=== PATIENT | male | born 1990 | race Caucasian/White ===

== ENCOUNTER 2018-11-06 19:05 | Emergency (ER) | payer MEDICAID ==
[~2018-11-06] VITALS: Ht 180.3 cm; Wt 74.7 kg
[2018-11-06 19:07] VITALS: Ht 180.3 cm; Wt 74.7 kg
--- NOTE | 2018-11-06 20:20 | ERD ---
ER Documentation Chief Complaint Chief Complaint planning to OD x 1month, confided to a friend & recommended to seek tx HPI Is a 28-year-old man with a history of depression but never treated medically has had increasing thoughts of suicide and wanting to kill himself, he states symptoms have been present for about 2 months but getting worse over the last couple of weeks. He denies fevers or chills, no chest pain or shortness of breath, no vomiting or diarrhea, no blood per rectum or melena. Patient denies weight loss. He is having thoughts of overdosing. ROS All systems reviewed and are negative except as per history of present illness. Allergies Allergies: Coded Allergies: No Known Allergy (Unverified , 11/06/18) PMhx/Soc Medical and Surgical Hx: pt denies Medical Hx, pt denies Surgical Hx Hx Alcohol Use: No Hx Substance Use: No Hx Tobacco Use: No Smoking Status: Never smoker FmHx Family History: No diabetes Physical Exam Vitals Vital Signs Date Temp Pulse Resp B/P (MAP) Pulse Ox O2 O2 Flow FiO2 Time Delivery Rate 11/06/18 97.9 89 20 130/81 98 Room Air 20:00 (97) 11/06/18 97.9 100 20 134/74 98 19:07 (94) Physical Exam GENERAL: Well-developed, well-nourished, well-hydrated, appears depressed and anxious, afebrile HEENT: Moist mucous membranes, pink conjunctiva, no cervical spine tenderness or step-off deformities, no goiter, no jaundice or icterus, extraocular movements intact without pain. No submandibular induration, and no pharyngeal erythema NEURO: Alert and oriented 3, cranial nerves II through XII intact bilaterally, pupils equal round reactive to light, no focal deficits or facial asymmetry, sensation intact distally Strength 5/5 in upper and lower extremities bilaterally CARDIAC: Regular rate and rhythm, no murmurs rubs or gallops LUNGS: Clear bilaterally no wheezing crackles or stridor SKIN: Warm and dry to touch, abrasion to the right wrist with healing granulation tissue present, no active bleeding, no hematomas EXTREMITIES: No clubbing cyanosis or edema, calves are bilaterally symmetrical, no Homans sign, no popliteal cord sign. Distal pulses equal and bilateral PSYCH: Depressed and anxious affect Result Diagram: 11/06/18202811/06/182028 Results 24 hrs Laboratory Tests Test 11/06/18 20:29 11/06/18 20:35 White Blood Count 6.6 10^3/ul Red Blood Count 4.95 10^6/ul Hemoglobin 14.9 g/dl Hematocrit 42.8 % Mean Corpuscular Volume 86.5 fl Mean Corpuscular Hemoglobin 30.1 pg Mean Corpuscular Hemoglobin Concent 34.8 g/dl Red Cell Distribution Width 12.6 % Platelet Count 264 10^3/UL Mean Platelet Volume 9.7 fl Immature Granulocytes % 0.200 % Neutrophils % 60.7 % Lymphocytes % 28.9 % Monocytes % 7.3 % Eosinophils % 2.3 % Basophils % 0.6 % Nucleated Red Blood Cells % 0.0 /100WBC Immature Granulocytes # 0.010 10^3/ul Neutrophils # 4.0 10^3/ul Lymphocytes # 1.9 10^3/ul Monocytes # 0.5 10^3/ul Eosinophils # 0.2 10^3/ul Basophils # 0.0 10^3/ul Nucleated Red Blood Cells # 0.0 10^3/ul Sodium Level 140 mmol/L Potassium Level 4.3 mmol/L Chloride Level 104 mmol/L Carbon Dioxide Level 27 mmol/L Anion Gap 9 Blood Urea Nitrogen 14 mg/dl Creatinine 0.80 mg/dl Est Glomerular Filtrat Rate mL/min > 60 mL/min Glucose Level 67 mg/dl Calcium Level 9.1 mg/dl Total Bilirubin 0.3 mg/dl Direct Bilirubin 0.00 mg/dl Indirect Bilirubin 0.3 mg/dl Aspartate Amino Transf (AST/SGOT) 18 IU/L Alanine Aminotransferase (ALT/SGPT) 14 IU/L Alkaline Phosphatase 101 IU/L Total Protein 7.5 g/dl Albumin 4.3 g/dl Globulin 3.20 g/dl Albumin/Globulin Ratio 1.34 Salicylates Level < 1.0 mg/dl Acetaminophen Level < 10.0 ug/ml Ethyl Alcohol Level < 10.0 mg/dl Urine Color YELLOW Urine Clarity CLEAR Urine pH 6.0 Urine Specific Gem 1.023 Urine Ketones NEGATIVE mg/dL Urine Nitrite NEGATIVE mg/dL Urine Bilirubin NEGATIVE mg/dL Urine Urobilinogen NEGATIVE mg/dL Urine Leukocyte Esterase NEGATIVE Yandel/ul Urine Hemoglobin NEGATIVE mg/dL Urine Glucose NEGATIVE mg/dL Urine Total Protein NEGATIVE mg/dl Urine Opiates Screen Negative Urine Barbiturates Negative Urine Amphetamines Screen POSITIVE Urine Benzodiazepines Screen Negative Urine Cocaine Screen Negative Urine Cannabinoids Positive Current Medications Medications Dose Sig/Ash Start Time Status Last (Trade) Ordered Route PRN Stop Time Admin Dose Reason Admin Lorazepam 0.5 mg ONCE ONCE 11/06/18 DC 11/06/18 (Ativan) PO 20:30 20:31 11/06/18 20:31 Procedures/MDM I administered lorazepam 0.5 mg p.o. x1 for his symptoms CBC and electrolytes were within normal limits, liver function tests were normal, aspirin, Tylenol, ethanol levels negative, drug screen positive for amphetamines and cannabinoids. Urine analysis negative for infection. Patient's behavioral symptoms have stabilized while in the department. Patient is medically cleared and appropriate for psychiatric evaluation and work up. No e/o neurologic, toxic, infectious, or metabolic cause. Tele-psychiatry consultation has been ordered after evaluating the patient he recommended admission and transferred to psychiatric facility. He also recommended Celexa 20 mg every morning Departure Diagnosis: Primary Impression: Methamphetamine abuse Additional Impression: Depression Depression Type: major depressive disorder Major depression recurrence: single episode Active/Remission status: currently active Major depression episode severity: moderate Qualified Codes: F32.1 - Major depressive disorder, single episode, moderate Condition: Fair MILE FLORES MD Nov 06, 2018 20:20
[2018-11-06] MEDS ORDERED: LORAZEPAM 0.5 MG TAB PO ONE (20:30)
--- NOTE | 2018-11-06 23:17 | PSY ---
Date/Time of Note Date/Time of Note DATE: 11/06/18 TIME: 23:10 Psychiatric Subjective Eval Consent Pt consented to telemedicine: Yes Subjective Evaluation Patient location: emergency Chief Complaint: planning to OD x 1month, confided to a friend & recommended to seek tx Medical history Problems Medical Problems: (1) Depression Status: Acute (2) Methamphetamine abuse Status: Acute Allergies: Coded Allergies: No Known Allergy (Unverified , 11/06/18) Psychiatric Objective Eval Mental Status Examination: Laboratory Results Laboratory Tests Test 11/06/18 20:29 11/06/18 20:35 White Blood Count 6.6 10^3/ul Red Blood Count 4.95 10^6/ul Hemoglobin 14.9 g/dl Hematocrit 42.8 % Mean Corpuscular Volume 86.5 fl Mean Corpuscular Hemoglobin 30.1 pg Mean Corpuscular Hemoglobin Concent 34.8 g/dl Red Cell Distribution Width 12.6 % Platelet Count 264 10^3/UL Mean Platelet Volume 9.7 fl Immature Granulocytes % 0.200 % Neutrophils % 60.7 % Lymphocytes % 28.9 % Monocytes % 7.3 % Eosinophils % 2.3 % Basophils % 0.6 % Nucleated Red Blood Cells % 0.0 /100WBC Immature Granulocytes # 0.010 10^3/ul Neutrophils # 4.0 10^3/ul Lymphocytes # 1.9 10^3/ul Monocytes # 0.5 10^3/ul Eosinophils # 0.2 10^3/ul Basophils # 0.0 10^3/ul Nucleated Red Blood Cells # 0.0 10^3/ul Sodium Level 140 mmol/L Potassium Level 4.3 mmol/L Chloride Level 104 mmol/L Carbon Dioxide Level 27 mmol/L Anion Gap 9 Blood Urea Nitrogen 14 mg/dl Creatinine 0.80 mg/dl Est Glomerular Filtrat Rate mL/min > 60 mL/min Glucose Level 67 mg/dl Calcium Level 9.1 mg/dl Total Bilirubin 0.3 mg/dl Direct Bilirubin 0.00 mg/dl Indirect Bilirubin 0.3 mg/dl Aspartate Amino Transf (AST/SGOT) 18 IU/L Alanine Aminotransferase (ALT/SGPT) 14 IU/L Alkaline Phosphatase 101 IU/L Total Protein 7.5 g/dl Albumin 4.3 g/dl Globulin 3.20 g/dl Albumin/Globulin Ratio 1.34 Salicylates Level < 1.0 mg/dl Acetaminophen Level < 10.0 ug/ml Ethyl Alcohol Level < 10.0 mg/dl Urine Color YELLOW Urine Clarity CLEAR Urine pH 6.0 Urine Specific Hollenberg 1.023 Urine Ketones NEGATIVE mg/dL Urine Nitrite NEGATIVE mg/dL Urine Bilirubin NEGATIVE mg/dL Urine Urobilinogen NEGATIVE mg/dL Urine Leukocyte Esterase NEGATIVE Yandel/ul Urine Hemoglobin NEGATIVE mg/dL Urine Glucose NEGATIVE mg/dL Urine Total Protein NEGATIVE mg/dl Urine Opiates Screen Negative Urine Barbiturates Negative Urine Amphetamines Screen POSITIVE Urine Benzodiazepines Screen Negative Urine Cocaine Screen Negative Urine Cannabinoids Positive Assessment and Plan Recommendation/Plan Discharge Disposition: Psychiatric inpatient Legal Status: Voluntary Assessment Additional comments: IDENTIFYING INFORMATION: 28 year old Male patient who is currently located at the hospital and for whom psychiatric consultation was requested. SOURCES OF INFORMATION: The patient who appears to be reliable and the medical records; the nursing staff. CHIEF COMPLAINT: "suicidal thoughts". HISTORY OF PRESENT ILLNESS: The patient was interviewed via telemedicine in the presence of and under the supervision of nursing staff of the hospital. The consent to conducting this interview via telemedicine was obtained by the nursing staff at the hospital. JOE Chaney reports that the patient presented with depressed mood. The patient is not on a 5150 hold. Per ED physician note, the pt presented with SI with plan to OD since 1 month ago. The patient reports having SI with plan to OD on heroin, depressed mood, anhedo darian, low appetite, . The patient denies having AH, VH, delusions. The patient reports drinking a few drinks per occasion. The patient denies using alcohol heavily or regularly. The patient reports using meth occasionally. Last use was 1 week ago. The patient denies using any other substances. In terms of past psychiatric history, the patient reports having a history of no past psychiatric hospitalizations or contacts. The patient reports having a history of past suicide attempts. Denies having a manic episode lately. PAST MEDICAL HISTORY: none. CURRENT MEDICATIONS: none. ALLERGIES TO MEDICATIONS: NKDA. LABORATORY TESTS: CBC wnl, CMP with gluc 67, UDS + amph, MJ, alcohol level not detected. SOCIAL HISTORY: lives with mom, single, no kids, not employed. REVIEW OF SYSTEMS: Constitutional (e.g., fever, weight loss): negative; Eyes, Ears, Nose, Mouth, Throat: negative; Cardiovascular: negative; Respiratory: negative; Gastrointestinal: negative; Genitourinary: negative; Musculoskeletal: negative; Integumentary (skin and/or breast): negative; Neurological: negative; Psychiatric: as per HPI; Endocrine: negative; Hematologic/Lymphatic: negative; Allergic/Immunologic: negative. MENTAL STATUS EXAMINATION: General Appearance and Behavior: Calm, cooperative with the interview, pleasant with the current interviewer, makes fair eye contact, fairly groomed, no abnormal movements noted, Speech: Regular rate, regular rhythm, normal latency, normal volume, somewhat decreased amount, Flow of thought: sequential, logical, goal-directed, Content of thought: no auditory hallucinations, no visual hallucinations, no delusions, positive for suicidal ideation; no homicidal ideation, Mood: "depressed", Affect: dysthymic, dysphoric, not reactive, Attention: normal based on the interview, Insight: fair, Judgment: poor, Memory: normal based on the interview, Sensorium: alert and oriented to person, place and date. ASSESSMENT: The patient's presentation and history are consistent with the diagnosis of unspecified mood disorder, stimulant use disorder. The patient presents in a major depressive episode in the context of medication noncompliance, psychosocial stressors and substance use. No evidence of psychosis, margie, hypomania on exam. PLAN: - Medication management: Would start celexa 20 mg po qam. Risks, benefits, alternatives discussed in detail and the patient provided informed consent to proceed. Would start haloperidol 5 mg IM PRN severe agitation q4 hours. Would start diphenhydramine 50 mg IM PRN severe agitation q4 hours. Would start lorazepam 2 mg IM PRN severe agitation q4 hours Will defer to the inpatient psychiatry team for other medication changes. - Labs: No other laboratory tests are needed at this time. - Psychotherapy: Provided supportive psychotherapy and psychoeducation. - Disposition: Would recommend voluntary admission to the inpatient psychiatric unit as the patient would benefit from such an intervention so long as the patient has been cleared medically for admission to psychiatry. The patient is agreeable to being hospitalized in the inpatient psychiatric unit at this time. Would place on suicide precautions. Discussed about the above plan with Dr. Zimmer. CHELI MILLER MD Nov 06, 2018 23:17
[2018-11-07 12:00] VITALS: BP 121/90; PULSE 65; RESP 18
== END 2018-11-07 12:32 ==
LOC: E/R 19:05
DX: F15.10 Other stimulant abuse, uncomplicated (principal); F32.1 Major depressive disorder, single episode, moderate
CPT/HCPCS: 80053; 80307; 81003; 85025; Z7610; 36415